=== PATIENT | male | born 1975 | race Caucasian/White ===

== ENCOUNTER 2017-01-09 19:42 | Emergency (ER) | payer SELFPAY ==
[~2017-01-09 19:42] MED LIST: ATEN50TA PO; BENA20TA48 PO; PANT40TA3 PO; SERT50TA6 PO; ZOF8 PO
[2017-01-09] MEDS ORDERED: LORAZEPAM 1 MG TAB PO ONE (20:00)
--- NOTE | 2017-01-09 21:37 | ERD ---
ER Documentation Chief Complaint Date/Time DATE: 01/09/17 TIME: 21:35 Chief Complaint Alcohol intoxication HPI Patient is a 41-year-old male with hypertension who presents saying "I think I drank too much". He said that he was drinking tequila. He is complaining of chest pain. He was brought in by ambulance. Please note the history and physical exam is limited secondary to the patient's mental status at this time. He is very hesitant to even be in the emergency department and seems very anxious. ROS All systems reviewed and are negative except as per history of present illness. Medications Home Meds Active Scripts Ondansetron Hcl* (Zofran* ODT) 8 mg -ODT Tab.disper, 8 MG PO Q6 Y for NAUSEA AND /OR VOMITING, #10 TAB Prov:SANDRA SALGADO MD 03/16/16 Pantoprazole* (Protonix*) 40 Mg Tablet.dr, 40 MG PO DAILY, #30 TAB Prov:SANDRA SALGADO MD 03/16/16 Reported Medications Sertraline Hcl* (Sertraline Hcl*) 50 Mg Tablet, 50 MG PO DAILY, #30 TAB 03/16/16 Atenolol* (Atenolol*) 50 Mg Tablet, 50 MG PO DAILY, TAB 08/29/15 Benazepril Hcl* (Benazepril Hcl*) 20 Mg Tablet, 20 MG PO DAILY, TAB 08/29/15 Allergies Allergies: Coded Allergies: No Known Allergy (Unverified , 08/29/15) PMhx/Soc History of Surgery: Yes (LEFT KNEE SURGERY) Anesthesia Reaction: No Hx Neurological Disorder: No Hx Respiratory Disorders: No Hx Cardiac Disorders: Yes (HTN, [place] 10 YEARS AGO) Hx Psychiatric Problems: No Hx Miscellaneous Medical Probl: No Hx Alcohol Use: Yes (pt stats former etoh abuse) Hx Substance Use: Yes (marijuana) Hx Tobacco Use: No FmHx Family History: No diabetes Physical Exam Physical Exam Const: No acute distress Head: Atraumatic Eyes: Normal Conjunctiva ENT: Normal External Ears, Nose and Mouth. Neck: Full range of motion..~ No meningismus. Resp: Clear to auscultation bilaterally Cardio: Regular rate and rhythm, no murmurs Abd: Soft, non tender, non distended. Normal bowel sounds Skin: No petechiae or rashes Back: No midline or flank tenderness Ext: No cyanosis, or edema Neur: Awake but anxious Psych: Anxious without suicidal or homicidal ideation Results 24 hrs Current Medications Medications (Trade) Dose Ordered Sig/Severino Route PRN Reason Start Time Stop Time Status Last Admin Dose Admin Lorazepam (Ativan) 1 mg ONCE ONCE PO 01/09/17 20:00 01/09/17 20:00 DC Procedures/MDM Patient is a 41-year-old male with hypertension who presents with alcohol intoxication and anxiety. He has no suicidal or homicidal ideation. Within 5 minutes of arriving to the emergency department he decided he did not want to be in the emergency department any longer and eloped. He did not stay for his EKG or chest x-ray. He can return for any worsening symptoms. He should follow -up with the primary doctor within 24-48 hours. Departure Diagnosis: Primary Impression: Chest pain Chest pain type: unspecified Qualified Code: R07.9 - Chest pain, unspecified type Additional Impression: Alcohol intoxication Complication of substance-induced condition: uncomplicated Qualified Code: F10.120 - Alcohol intoxication, uncomplicated Condition: ARACELI Joya MD Jan 09, 2017 21:37
== END 2017-01-09 19:53 | disposition left against medical advice (07) ==
LOC: E/R 19:42
DX: R07.9 Chest pain, unspecified (principal); I10 Essential (primary) hypertension
CPT/HCPCS: 99283

== ENCOUNTER 2017-06-30 04:07 | Emergency (ER) | payer SELFPAY ==
[~2017-06-30] VITALS: Ht 162.6 cm; Wt 74.1 kg
[2017-06-30] MEDS ORDERED: morphine 4 MG/ML VIAL IV STA ×2 (04:23→05:02)
[2017-06-30] MEDS ORDERED: FAMOTIDINE 20 MG INJ IV STA (04:23)
[2017-06-30] MEDS ORDERED: ONDANSETRON 4 MG INJ IV STA (04:23)
[2017-06-30] MEDS ORDERED: SOD CHLORIDE 0.9% 1,000 ML IV STA ×2 (04:23→05:04)
[2017-06-30 04:42] VITALS: Ht 162.6 cm; Wt 74.1 kg
[2017-06-30 04:43] LABS: BASOPHIL # 0.1 10^3/ul (0.0-0.1); BASOPHILS % 0.9 % (0.0-2.0); EOSINOPHILS # 0.1 10^3/ul (0.0-0.5); EOSINOPHILS % 0.8 % (0.0-7.0); HEMATOCRIT 56.4 % (42.0-52.0); HEMOGLOBIN 19.4 g/dl (14.0-18.0); LYMPHOCYTES # 2.7 10^3/ul (0.8-2.9); LYMPHOCYTES % 30.7 % (15.0-51.0); MEAN CORPUSCULAR HEMOGLOBIN 31.3 pg (29.0-33.0); MEAN CORPUSCULAR HGB CONC 34.4 g/dl (32.0-37.0); MEAN CORPUSCULAR VOLUME 91.1 fl (82.0-101.0); MONOCYTE # 0.5 10^3/ul (0.3-0.9); MONOCYTES % 5.9 % (0.0-11.0); NEUTROPHIL # 5.4 10^3/ul (1.6-7.5); NEUTROPHILS % 61.1 % (39.0-77.0); PLATELET COUNT 277 10^3/UL (140-415); RED BLOOD COUNT 6.19 10^6/ul (4.70-6.10); RED CELL DISTRIBUTION WIDTH 13.7 % (11.5-14.5); WHITE BLOOD COUNT 8.9 10^3/ul (4.8-10.8)
[2017-06-30] MEDS ORDERED: LIDOCAINE/MYLANTA 40 ML BTL PO STA (05:10)
[2017-06-30 05:13] LABS: ALBUMIN 3.9 g/dl (3.3-4.9); BILIRUBIN,INDIRECT 0.3 mg/dl (0-1.1); BILIRUBIN,TOTAL 0.3 mg/dl (0.2-1.3); CALCIUM 8.9 mg/dl (8.4-10.2); CREATININE 1.07 mg/dl (0.61-1.24); POTASSIUM 4.1 mmol/L (3.5-5.1); TOTAL PROTEIN 7.8 g/dl (6.1-8.1)
--- NOTE | 2017-06-30 05:34 | ERD ---
ER Documentation Chief Complaint Date/Time DATE: 06/30/17 TIME: 05:31 Chief Complaint ABD PAIN HPI This is a 42-year-old male presents to the emergency room for evaluation of abdominal pain. The patient states that he drinks alcohol tonight is having pain after drinking alcohol. The patient localizes the pain to the midportion of his abdomen and denies any radiation of the pain. He states that he is vomited once and denies any current nausea. He denies any blood in the vomiting came to the emergency room today for evaluation. ROS All systems reviewed and are negative except as per history of present illness. Medications Home Meds Active Scripts Ondansetron Hcl* (Zofran* ODT) 8 mg -ODT Tab.disper, 8 MG PO Q6 Y for NAUSEA AND /OR VOMITING, #10 TAB Prov:SANDRA SALGADO MD 03/16/16 Pantoprazole* (Protonix*) 40 Mg Tablet.dr, 40 MG PO DAILY, #30 TAB Prov:SANDRA SALGADO MD 03/16/16 Reported Medications Sertraline Hcl* (Sertraline Hcl*) 50 Mg Tablet, 50 MG PO DAILY, #30 TAB 03/16/16 Atenolol* (Atenolol*) 50 Mg Tablet, 50 MG PO DAILY, TAB 08/29/15 Benazepril Hcl* (Benazepril Hcl*) 20 Mg Tablet, 20 MG PO DAILY, TAB 08/29/15 Allergies Allergies: Coded Allergies: No Known Allergy (Unverified , 08/29/15) PMhx/Soc History of Surgery: Yes (LEFT KNEE SURGERY) Anesthesia Reaction: No Hx Neurological Disorder: No Hx Respiratory Disorders: No Hx Cardiac Disorders: Yes (HTN, [place] 10 YEARS AGO) Hx Psychiatric Problems: No Hx Miscellaneous Medical Probl: No Hx Alcohol Use: Yes (pt stats former etoh abuse) Hx Substance Use: Yes (marijuana) Hx Tobacco Use: Yes Smoking Status: Current some day smoker Physical Exam Vitals Vital Signs Date Time Temp Pulse Resp B/P Pulse Ox O2 Delivery O2 Flow Rate FiO2 06/30/17 04:42 98.2 100 18 156/126 99 06/30/17 04:25 98.2 89 20 156/126 99 Room Air Physical Exam Const: Mild distress Head: Atraumatic Eyes: Normal Conjunctiva ENT: Normal External Ears, Nose and Mouth. Neck: Full range of motion..~ No meningismus. Resp: Clear to auscultation bilaterally Cardio: Regular rate and rhythm, no murmurs Abd: Gastric tenderness to palpation, negative Pretty sign, otherwise soft, non tender, non distended. Normal bowel sounds Skin: No petechiae or rashes Back: No midline or flank tenderness Ext: No cyanosis, or edema Neur: Awake and alert Psych: Normal Mood and Affect Result Diagram: 06/30/1741906/30/17419 Results 24 hrs Laboratory Tests Test 06/30/17 04:20 White Blood Count 8.910^3/ul Red Blood Count 6.1910^6/ul Hemoglobin 19.4g/dl Hematocrit 56.4% Mean Corpuscular Volume 91.1fl Mean Corpuscular Hemoglobin 31.3pg Mean Corpuscular Hemoglobin Concent 34.4g/dl Red Cell Distribution Width 13.7% Platelet Count 37474^3/UL Mean Platelet Volume 9.0fl Neutrophils % 61.1% Lymphocytes % 30.7% Monocytes % 5.9% Eosinophils % 0.8% Basophils % 0.9% Nucleated Red Blood Cells % 0.0/100WBC Neutrophils # 5.410^3/ul Lymphocytes # 2.710^3/ul Monocytes # 0.510^3/ul Eosinophils # 0.110^3/ul Basophils # 0.110^3/ul Nucleated Red Blood Cells # 0.010^3/ul Sodium Level 145mmol/L Potassium Level 4.1mmol/L Chloride Level 105mmol/L Carbon Dioxide Level 26mmol/L Anion Gap 18 Blood Urea Nitrogen 5mg/dl Creatinine 1.07mg/dl Glucose Level 117mg/dl Calcium Level 8.9mg/dl Total Bilirubin 0.3mg/dl Direct Bilirubin 0.00mg/dl Indirect Bilirubin 0.3mg/dl Aspartate Amino Transf (AST/SGOT) 79IU/L Alanine Aminotransferase (ALT/SGPT) 75IU/L Alkaline Phosphatase 76IU/L Total Protein 7.8g/dl Albumin 3.9g/dl Globulin 3.90g/dl Albumin/Globulin Ratio 1.00 Lipase 108U/L Current Medications Medications (Trade) Dose Ordered Sig/Severino Route PRN Reason Start Time Stop Time Status Last Admin Dose Admin Sodium Chloride (NS) 1,000 ml @ 1,000 mls/hr Q1H STAT IV 06/30/17 04:23 06/30/17 05:22 DC 06/30/17 04:34 Morphine Sulfate (morphine) 4 mg ONCE STAT IV 06/30/17 04:23 06/30/17 04:24 DC 06/30/17 04:34 Ondansetron HCl (Zofran Inj) 4 mg ONCE STAT IV 06/30/17 04:23 06/30/17 04:24 DC 06/30/17 04:34 Famotidine (Pepcid Iv) 20 mg ONCE STAT IV 06/30/17 04:23 06/30/17 04:24 DC 06/30/17 04:34 Morphine Sulfate 4 mg 4 mg ONCE STAT IV 06/30/17 05:02 06/30/17 05:03 DC Sodium Chloride (NS) 1,000 ml @ 1,000 mls/hr Q1H STAT IV 06/30/17 05:04 06/30/17 06:03 Miscellaneous Medication (Gi Cocktail (2)) 40 ml ONCE STAT PO 06/30/17 05:10 06/30/17 05:11 DC Procedures/MDM This 42-year-old male presents to the ER for evaluation of abdominal pain. When I evaluated him he was in moderate amount of stress. The patient did have tenderness to palpation in the epigastric region was given morphine for pain. He was given a GI cocktail, Pepcid, and when I reevaluated him he said he was feeling better. The patient does state that he drinks alcohol. The patient likely is suffering from alcoholic gastritis and I have looked of his previous medical record and he has been seen in the ER in the past for similar symptoms. The patient was advised to discontinue use of alcohol. He will be discharged when he is clinically sober. Smoking Cessation Therapy: Pt. was lectured for greater than 3 minutes on the health risks of continued smoking and the benefits of cessation. Departure Diagnosis: Primary Impression: Abdominal pain Additional Impressions: Alcoholic gastritis Tobacco abuse Tobacco abuse counseling Condition: [place] POWERMICHELLE MARQUEZ DO Jun 30, 2017 05:34
[2017-06-30] MEDS ORDERED: RANI150T9 PO (05:35)
[2017-06-30 05:57] VITALS: BP 172/124; PULSE 100; RESP 18; TEMP 98.2
[2017-06-30 06:00] LABS: ADD UMIC YES; UR ASCORBIC ACID NEGATIVE (NEGATIVE); UR BILIRUBIN (Dip) NEGATIVE (NEGATIVE); UR BLOOD (Dip) 1+ mg/dL (NEGATIVE); UR CLARITY CLEAR (CLEAR); UR COLOR STRAW (YELLOW); UR GLUCOSE (Dip) NEGATIVE (NEGATIVE); UR KETONES (Dip) NEGATIVE (NEGATIVE); UR LEUKOCYTE ESTERASE (Dip) NEGATIVE Leu/ul (NEGATIVE); UR NITRITE (Dip) NEGATIVE (NEGATIVE); UR RBC 0 /HPF (0-5); UR SPECIFIC GRAVITY (Dip) 1.003 (1.003-1.030); UR TOTAL PROTEIN (Dip) 1+ mg/dl (NEGATIVE); UR UROBILINOGEN (Dip) NEGATIVE (NEGATIVE)
== END 2017-06-30 06:27 | disposition home or self-care (01) ==
LOC: E/R 04:07
DX: R10.9 Unspecified abdominal pain (principal); K29.20 Alcoholic gastritis without bleeding; F17.210 Nicotine dependence, cigarettes, uncomplicated; I10 Essential (primary) hypertension; Z71.6 Tobacco abuse counseling
CPT/HCPCS: 36415; 80053; 81001; 83690; 85025; 96374; 96375; 96376; 99284; J2270; J2405; J7030